=== PATIENT | female | born 1990 | race Caucasian/White ===

== ENCOUNTER 2024-10-14 21:06 | Inpatient (IN) ==
[2024-10-14 21:29] LABS: iSTAT Creatinine 0.9 mg/dl (0.6-1.3); iSTAT Hemoglobin 12.9 g/dl (12.0-16.0); iSTAT Ionized Calcium 1.19 mmol/l (1.12-1.32); iSTAT Potassium 4.8 mmol/L (3.3-5.0)
[2024-10-14 22:04] LABS: Basophils # (auto) 0.05 K/uL (0.00-0.20); Basophils % (auto) 0.8 %; Eosinophils # (auto) 0.43 K/uL (0.00-0.50); Eosinophils % (auto) 6.9 %; Hematocrit (blood only) 37.7 % (37.0-47.0); Hemoglobin 12.4 g/dl (12.0-16.0); Immature Granulocytes # (auto) 0.02 K/uL (0.01-0.20); Immature Granulocytes % (auto) 0.3 %; Lymphocytes # (auto) 1.18 K/uL (1.20-3.40); Mean Corpuscular Hemoglobin 30.5 pg (25.0-34.0); Mean Corpuscular Hgb Conc 32.9 g/dL (32.0-36.0); Mean Corpuscular Volume 92.6 fL (80.0-100.0); Mean Platelet Volume 11.2 fL (9.4-12.4); Monocytes # (auto) 0.48 K/uL (0.11-0.59); Monocytes % (auto) 7.7 %; Neutrophils # (auto) 4.06 K/uL (1.40-6.50); Neutrophils % (auto) 65.3 %; Platelet Count 286 K/uL (130-400); RDW Coefficient of Variation 12.4 % (11.5-14.5); RDW Standard Deviation 42.5 fL (36.4-46.3); Red Blood Count 4.07 M/uL (4.20-5.40); White Blood Count 6.22 K/ul (4.8-10.8)
[2024-10-14 22:06] LABS: BUN Creatinine Ratio 22.4 (10-20); Calcium 9.2 mg/dl (8.6-10.3); Creatinine Clr Calc Pharmacy 120.3 ml/min; Magnesium 2.3 mg/dl (1.7-2.4); Potassium 4.8 mmol/L (3.5-5.1)
[2024-10-14] MEDS: SODIUM CHLORIDE 0.9% 1,000 ML IV ONE (22:07)
--- NOTE | 2024-10-14 22:13 | CT Scan Report ---
Exam(s): CT HEAD Without Contrast EXAM: CT Head Without Intravenous Contrast CLINICAL HISTORY: Reason for exam: ams fall. TECHNIQUE: Axial computed tomography images of the head/brain without intravenous contrast. CTDI is 35 mGy and DLP is 624 mGy-cm. Automated exposure control was utilized for the study. A dose lowering technique was utilized adhering to the principles of ALARA. COMPARISON: No relevant prior studies available. FINDINGS: Brain: No acute intracranial hemorrhage, mass effect, or parenchymal edema. No evident loss of lazcano-white matter differentiation. No significant white matter disease. Ventricles: No hydrocephalus. Bones/joints: No acute fracture. Soft tissues: Unremarkable. Sinuses: Unremarkable as visualized. Mastoid air cells: No significant mastoid effusion. IMPRESSION: No acute intracranial process. Electronically signed by: King Dacosta M.D. 10/14/24 22:12 PM
--- NOTE | 2024-10-14 22:13 | CT Scan Report ---
Exam(s): CT C SPINE EXAM: CT Cervical Spine Without Intravenous Contrast CLINICAL HISTORY: Reason for exam: ams fall. TECHNIQUE: Axial computed tomography images of the cervical spine without intravenous contrast. CTDI is 35 mGy and DLP is 624 mGy-cm. Automated exposure control was utilized for the study. A dose lowering technique was utilized adhering to the principles of ALARA. COMPARISON: No relevant prior studies available. FINDINGS: Vertebrae: Unremarkable. No acute fracture. No traumatic subluxation. Discs/spinal canal/neural foramina: No acute findings. No spinal canal stenosis. Soft tissues: Unremarkable. IMPRESSION: No acute osseous findings. Electronically signed by: King Dacosta M.D. 10/14/24 22:12 PM
[2024-10-14 22:16] LABS: iSTAT Arterial Blood Gas HCO3 25 meg/L (19-24); iSTAT Arterial Blood Gas pCO2 46 mmHg (35-46); iSTAT Arterial Blood Gas pH 7.34 (7.35-7.45); iSTAT Arterial Blood Gas pO2 70 mmHg (80-95); iSTAT Carbon Dioxide 26 mmol/L (24-31); iSTAT Hematocrit 36 % (37-47); iSTAT Hemoglobin 12.2 g/dl (12.0-16.0); iSTAT Potassium 4.2 mmol/L (3.3-5.0); iSTAT Sodium 137 mmol/L (135-144)
--- NOTE | 2024-10-14 22:43 | Emergency Department Note ---
History of Present Illness General Chief complaint: Unresponsive Stated complaint: UNRESPONSIVE Time Seen by Provider: 10/14/24 21:11 Source: family History of Present Illness Provider complaint: Unresponsive 34-year-old female presents emergency department for altered mental status unresponsiveness. History is given by her . reports he came downstairs and found the patient lying on their floor. He reports that he does not think she fell as she commonly lies on the floor and stretches. He states he found her in this position at 8 PM. He states he tried to wake her and she was giving one-word answers and said there is something wrong with her ear. He states he helped her up the stairs which she did walk up with his help. He states when they got up to their bedroom she again passed out and then he called 911. Patient is not on any blood thinners. He reports no drugs or alcohol. He reports no suicidal homicidal ideation. reports that the patient has a history of migraines and is on triptans for it. He also reports that the patient has a history of Lyme's pots disease chronic fatigue and long COVID. He reports that the patient sees an online neurologist and has been prescribing her ketamine for her migraines. reports he is not sure if the patient took the ketamine today and/or how much. Home Medications Medication Instructions Recorded Confirmed Type gabapentin 600 mg tablet 600 mg PO Q12H 10/14/24 10/14/24 History propranolol 20 mg tablet 20 mg PO Q12H 10/14/24 10/14/24 History Past Med/Surg History Problem List (Updated 10/14/24 @ 23:50 by Souleymane Reyes MD) Hypothermia (Acute) Polysubstance overdose (Acute) Medical History Migraine Chronic fatigue Lyme disease Long COVID POTS (postural orthostatic tachycardia syndrome) Social History Smoking Status: Never smoker Physical Exam Vital Signs Vital Signs - 24 hr 10/14/24 20:57 10/14/24 21:11 10/14/24 21:33 Temperature 35.6 C L Temperature Source Rectal Pulse Rate 84 90 Pulse Rate from SpO2 Sensor Respiratory Rate 17 Blood Pressure 140/94 Blood Pressure Mean 109 Pulse Oximetry 98 99 Oxygen Delivery Method Room Air Room Air Sepsis Recent Fever Within 48 Hours No Sepsis New/Unexplained Change in Mental Status No Sepsis Action Taken by Nursing No Action Required End-Tidal CO2 10/14/24 21:51 10/14/24 21:57 10/14/24 22:00 Temperature Temperature Source Pulse Rate 95 H 95 H Pulse Rate from SpO2 Sensor 93 H 93 H Respiratory Rate 19 12 Blood Pressure 138/113 H 146/105 H Blood Pressure Mean 118 118 Pulse Oximetry 98 99 Oxygen Delivery Method Sepsis Recent Fever Within 48 Hours Sepsis New/Unexplained Change in Mental Status Sepsis Action Taken by Nursing End-Tidal CO2 10/14/24 22:15 10/14/24 23:00 Temperature 35.5 C L Temperature Source Pulse Rate 88 80 Pulse Rate from SpO2 Sensor 88 Respiratory Rate 12 12 Blood Pressure 123/75 Blood Pressure Mean 91 Pulse Oximetry 99 99 Oxygen Delivery Method Room Air Sepsis Recent Fever Within 48 Hours Sepsis New/Unexplained Change in Mental Status Sepsis Action Taken by Nursing End-Tidal CO2 42 Physical Exam HENT: Exam performed. -Head: Normocephalic and atraumatic. EYES: Pupils 2 mm and reactive to light. NECK: Normal range of motion. Neck supple. No JVD present. CV: Normal rate, regular rhythm, normal heart sounds and intact distal pulses. There is no peripheral edema. Palpable radial pulses bue. PULM/CHEST: Effort normal and breath sounds normal. No respiratory distress. No stridor. She has no wheezes. She has no rales. ABD: The abdomen is soft. MUSC/SKEL: Pelvis stable. NEURO:GCS eye subscore is 1. GCS verbal subscore is 2. GCS motor subscore is 5. Procedures FAST Exam FAST Exam 1: Fluid in Morison's pouch: No Fluid in Splenorenal Junction: No Fluid around bladder, Transverse view: No Fluid around bladder, Sagittal view: No Fluid in Pericardial Sac: No Gross Wall Motion Abnormality: No Study normal for this patient: Yes Course Course 2110: The patient was evaluated in room A1. A complete history and physical exam was performed Cardiac monitoring: An order was placed for continuous cardiac monitoring. The monitor shows a rate of 90 with sinus rhythm interpreted by me 2235: Heart rate blood pressure and oxygen saturation are within normal limits. Thorpe catheter was placed and the patient's temperature was 35.6. Patient placed on Rosa hugger. Labs show white blood cell count of 6.22. Hemoglobin 12.4. Platelet count 286. Coagulation studies are pending. Blood gas shows a pH of 7.34 with pCO2 of 46. Electrolytes are unremarkable. Kidney function tests are unremarkable. Ammonia magnesium lipase and urine are unremarkable. Salicylate acetaminophen and alcohol level are negative. At this time it is thought that the patient's most likely cause of her altered mental status is a possible accidental overdose of the ketamine that she is prescribed for her migraines by her online neurologist. The family states they are unsure if the patient took the ketamine today and they do not think this was a suicide attempt. I discussed the case with poison control and they agreed that the patient should be admitted for observation. [facility] who states he will evaluate the patient for admission. 2346: Blood pressure and heart rate oxygen saturation stable. Patient's coagulation studies are unremarkable. Patient's urine drug screen tested positive for opiates, fentanyl, MDMA, benzodiazepines, and marijuana. It is possible that in addition to the possibility of ketamine overdose that the patient is suffering from a polysubstance overdose given this drug screen. [facility]. Administered Medications Discontinued Medications Sodium Chloride (Nss) 1,000 mls @ 999 mls/hr IV .[id number] ONE Stop: 10/14/24 22:11 Last Admin: 10/14/24 22:07 Dose: 999 mls/hr Documented By: HOANG Critical Care Time Critical Care Time: Yes Total Critical Care Time: 39 I have personally spent greater than 39 minutes of critical care time in the direct management of this patient. This includes bedside care, interpretation of diagnostic studies, and testing, discussion with consultants, patient, and family members, and other required patient management activities. This 39 minutes is in excess of all separately billable procedures. Medical Decision Making Laboratory Data Attestation: I reviewed the patient's lab results. 10/14/24 21:15 10/14/24 21:15 Lab Results 10/14/24 10/14/24 10/14/24 Range/Units 21:00 21:15 21:17 WBC 6.22 (4.8-10.8) K/ul RBC 4.07 L (4.20-5.40) M/uL Hgb 12.4 (12.0-16.0) g/dl POC Hgb 12.9 (12.0-16.0) g/dl Hct 37.7 (37.0-47.0) % POC Hct 38 (37-47) % MCV 92.6 (80.0-100.0) fL MCH 30.5 (25.0-34.0) pg MCHC 32.9 (32.0-36.0) g/dL RDW Std Deviation 42.5 (36.4-46.3) fL RDW Coeff of Cathy 12.4 (11.5-14.5) % Plt Count 286 (130-400) K/uL MPV 11.2 (9.4-12.4) fL Immature Gran % (Auto) 0.3 % Neut % (Auto) 65.3 % Lymph % (Auto) 19.0 % [place] % (Auto) 7.7 % Eos % (Auto) 6.9 % Baso % (Auto) 0.8 % Neut # (Auto) 4.06 (1.40-6.50) K/uL Lymph # (Auto) 1.18 L (1.20-3.40) K/uL [place] # (Auto) 0.48 (0.11-0.59) K/uL Eos # (Auto) 0.43 (0.00-0.50) K/uL Baso # (Auto) 0.05 (0.00-0.20) K/uL Immature Gran # (Auto) 0.02 (0.01-0.20) K/uL PT 9.6 (9.0-12.0) Seconds INR 0.9 (0.9-1.1) APTT 25 (21-31) Seconds PTT Ratio 0.9 POC pH (7.35-7.45) POC pCO2 (35-46) mmHg POC pO2 (80-95) mmHg POC HCO3 (19-24) rosalie/L POC Base Excess (-9-1.8) rosalie/L POC ABG O2 Sat (90-95) % POC Sodium 137 (135-144) mmol/L Sodium 136 (136-145) mmol/L POC Potassium 4.8 (3.3-5.0) mmol/L Potassium 4.8 (3.5-5.1) mmol/L POC Chloride 103 (101-112) mmol/L Chloride 104 (98-107) mmol/L Carbon Dioxide 27 (21-32) mmol/L POC Total CO2 25 (24-31) mmol/L Anion Gap 5 (3-11) POC Anion Gap 14.0 L (16-25) mmol/L POC BUN 19 H (7-18) mg/dl BUN 19 (6-23) mg/dl Creatinine 0.85 (0.6-1.2) mg/dl POC Creatinine 0.9 (0.6-1.3) mg/dl Est Cr Clr Drug Dosing 120.3 ml/min eGFR 91.57 BUN/Creatinine Ratio 22.4 H (10-20) Glucose 96 (70-99(Fasting)) mg/dl POC Glucose (other) 96 (70-99) mg/dl Calcium 9.2 (8.6-10.3) mg/dl POC Ioniz Calcium Sarah 1.19 (1.12-1.32) mmol/l Magnesium 2.3 (1.7-2.4) mg/dl Ammonia (18-72) umol/L Total Creatine Kinase 54 (26-192) U/L Lipase 17 (11-82) U/L HCG, Quant < 1 mIU/ml Urine Color Urine Appearance (Clear) Urine pH (4.5-7.5) Ur Specific [place] (1.000-1.030) Urine Protein (Negative) Urine Glucose (UA) (Negative) Urine Ketones (Negative) Urine Blood (Negative) Urine Nitrite (Negative) Urine Bilirubin (Negative) Urine Urobilinogen (Negative) Ur Leukocyte Esterase (Negative) Salicylates < 3.0 L (3.0-30) mg/dl Urine Opiates Screen (Neg) Ur Methadone, Qual (Neg) Urine Fentanyl Screen (Neg) Acetaminophen < 3 L (10-30) ug/ml Urine Barbiturates (Neg) Ur Phencyclidine (PCP) (Neg) U Amphetamin/Meth Scrn (Neg) MDMA (Ecstasy) Screen (Neg) U Benzodiazepines Scrn (Neg) Ur Cocaine Metabolite (Neg) U Marijuana (THC) Screen (Neg) Ethyl Alcohol mg/dL < 10.0 (<10.0) mg/dl 10/14/24 10/14/24 Range/Units 21:40 22:03 WBC (4.8-10.8) K/ul RBC (4.20-5.40) M/uL Hgb (12.0-16.0) g/dl POC Hgb 12.2 (12.0-16.0) g/dl Hct (37.0-47.0) % POC Hct 36 L (37-47) % MCV (80.0-100.0) fL MCH (25.0-34.0) pg MCHC (32.0-36.0) g/dL RDW Std Deviation (36.4-46.3) fL RDW Coeff of Cathy (11.5-14.5) % Plt Count (130-400) K/uL MPV (9.4-12.4) fL Immature Gran % (Auto) % Neut % (Auto) % Lymph % (Auto) % [place] % (Auto) % Eos % (Auto) % Baso % (Auto) % Neut # (Auto) (1.40-6.50) K/uL Lymph # (Auto) (1.20-3.40) K/uL [place] # (Auto) (0.11-0.59) K/uL Eos # (Auto) (0.00-0.50) K/uL Baso # (Auto) (0.00-0.20) K/uL Immature Gran # (Auto) (0.01-0.20) K/uL PT (9.0-12.0) Seconds INR (0.9-1.1) APTT (21-31) Seconds PTT Ratio POC pH 7.34 L (7.35-7.45) POC pCO2 46 (35-46) mmHg POC pO2 70 L (80-95) mmHg POC HCO3 25 H (19-24) rosalie/L POC Base Excess -1.0 (-9-1.8) rosalie/L POC ABG O2 Sat 93.0 (90-95) % POC Sodium 137 (135-144) mmol/L Sodium (136-145) mmol/L POC Potassium 4.2 (3.3-5.0) mmol/L Potassium (3.5-5.1) mmol/L POC Chloride (101-112) mmol/L Chloride (98-107) mmol/L Carbon Dioxide (21-32) mmol/L POC Total CO2 26 (24-31) mmol/L Anion Gap (3-11) POC Anion Gap (16-25) mmol/L POC BUN (7-18) mg/dl BUN (6-23) mg/dl Creatinine (0.6-1.2) mg/dl POC Creatinine (0.6-1.3) mg/dl Est Cr Clr Drug Dosing ml/min eGFR BUN/Creatinine Ratio (10-20) Glucose (70-99(Fasting)) mg/dl POC Glucose (other) (70-99) mg/dl Calcium (8.6-10.3) mg/dl POC Ioniz Calcium Sarah (1.12-1.32) mmol/l Magnesium (1.7-2.4) mg/dl Ammonia 15.0 L (18-72) umol/L Total Creatine Kinase (26-192) U/L Lipase (11-82) U/L HCG, Quant mIU/ml Urine Color Yellow Urine Appearance Clear (Clear) Urine pH 6.0 (4.5-7.5) Ur Specific [place] 1.015 (1.000-1.030) Urine Protein Negative (Negative) Urine Glucose (UA) Negative (Negative) Urine Ketones Negative (Negative) Urine Blood Negative (Negative) Urine Nitrite Negative (Negative) Urine Bilirubin Negative (Negative) Urine Urobilinogen Negative (Negative) Ur Leukocyte Esterase Negative (Negative) Salicylates (3.0-30) mg/dl Urine Opiates Screen Pos H (Neg) Ur Methadone, Qual Neg (Neg) Urine Fentanyl Screen Pos H (Neg) Acetaminophen (10-30) ug/ml Urine Barbiturates Neg (Neg) Ur Phencyclidine (PCP) Neg (Neg) U Amphetamin/Meth Scrn Neg (Neg) MDMA (Ecstasy) Screen Pos H (Neg) U Benzodiazepines Scrn Pos H (Neg) Ur Cocaine Metabolite Neg (Neg) U Marijuana (THC) Screen Pos H (Neg) Ethyl Alcohol mg/dL (<10.0) mg/dl Imaging Data Attestation: I personally reviewed and interpreted this imaging study as follows: My Impression: CT head: No ICH Chest x-ray: Chest x-ray negative. Airway clear. No pneumothorax. No consolidation. No cardiomegaly or cephalization.. No free air under the diaphragm. No fractures of the skeletal structures. Radiologist's Impression: Head CT 10/14/24 21:11 Exam(s): CT HEAD Without Contrast EXAM: CT Head Without Intravenous Contrast CLINICAL HISTORY: Reason for exam: ams fall. TECHNIQUE: Axial computed tomography images of the head/brain without intravenous contrast. CTDI is 35 mGy and DLP is 624 mGy-cm. Automated exposure control was utilized for the study. A dose lowering technique was utilized adhering to the principles of ALARA. COMPARISON: No relevant prior studies available. FINDINGS: Brain: No acute intracranial hemorrhage, mass effect, or parenchymal edema. No evident loss of lazcano-white matter differentiation. No significant white matter disease. Ventricles: No hydrocephalus. Bones/joints: No acute fracture. Soft tissues: Unremarkable. Sinuses: Unremarkable as visualized. Mastoid air cells: No significant mastoid effusion. IMPRESSION: No acute intracranial process. Electronically signed by: King Dacosta M.D. 10/14/24 22:[address] 10/14/24 21:12 Exam(s): CT C SPINE EXAM: CT Cervical Spine Without Intravenous Contrast CLINICAL HISTORY: Reason for exam: ams fall. TECHNIQUE: Axial computed tomography images of the cervical spine without intravenous contrast. CTDI is 35 mGy and DLP is 624 mGy-cm. Automated exposure control was utilized for the study. A dose lowering technique was utilized adhering to the principles of ALARA. COMPARISON: No relevant prior studies available. FINDINGS: Vertebrae: Unremarkable. No acute fracture. No traumatic subluxation. Discs/spinal canal/neural foramina: No acute findings. No spinal canal stenosis. Soft tissues: Unremarkable. IMPRESSION: No acute osseous findings. Electronically signed by: King Dacosta M.D. 10/14/24 22:12 PM Chest X-Ray 10/14/24 21:12 Exam(s): XR CXR 1 VIEW EXAM: XR Chest, 1 View CLINICAL HISTORY: Reason for exam: ams fall. TECHNIQUE: Frontal view of the chest. COMPARISON: No relevant prior studies available. FINDINGS: Lungs: No consolidation. Pleural space: No pleural effusion or pneumothorax. Heart: No cardiomegaly or pulmonary vascular congestion. Bones/joints: No acute fracture. No dislocation. IMPRESSION: No evidence of acute cardiopulmonary disease. Electronically signed by: King Dacosta M.D. 10/14/24 22:40 PM Pelvis X-Ray 10/14/24 21:12 Exam(s): XR PELVIS, 1-2 views EXAM: XR Pelvis, 1 or 2 Views CLINICAL HISTORY: Reason for exam: ams fall. TECHNIQUE: Frontal view of the pelvis. COMPARISON: No relevant prior studies available. FINDINGS: Bones/joints: No acute fracture. No dislocation. Soft tissues: Unremarkable. IMPRESSION: No acute osseous findings. Electronically signed by: King Dacosta M.D. 10/14/24 22:40 PM Exam(s): XR CXR 1 VIEW EXAM: XR Chest, 1 View CLINICAL HISTORY: Reason for exam: ams fall. TECHNIQUE: Frontal view of the chest. COMPARISON: No relevant prior studies available. FINDINGS: Lungs: No consolidation. Pleural space: No pleural effusion or pneumothorax. Heart: No cardiomegaly or pulmonary vascular congestion. Bones/joints: No acute fracture. No dislocation. IMPRESSION: No evidence of acute cardiopulmonary disease. Electronically signed by: King Dacosta M.D. 10/14/24 22:40 PM Dictated: 10/14/242239 Transcribed: 10/14/242239 Exam(s): XR PELVIS, 1-2 views EXAM: XR Pelvis, 1 or 2 Views CLINICAL HISTORY: Reason for exam: ams fall. TECHNIQUE: Frontal view of the pelvis. COMPARISON: No relevant prior studies available. FINDINGS: Bones/joints: No acute fracture. No dislocation. Soft tissues: Unremarkable. IMPRESSION: No acute osseous findings. Electronically signed by: King Dacosta M.D. 10/14/24 22:40 PM Dictated: 10/14/242239 Transcribed: 10/14/242239 ECG Data Attestation: I personally reviewed and interpreted this ECG as follows: Rate (beats per minute): 93 Rhythm: + normal sinus ECG Intervals/blocks: + Normal QRS, + Normal NH and + Normal QT-c ECG ST segments: + Normal ST segments [facility] Narrative 2111: The patient was evaluated in room A1. A complete history and physical exam was performed Cardiac monitoring: An order was placed for continuous cardiac monitoring. The monitor shows a rate of 90 with sinus rhythm interpreted by nm 2235: Heart rate blood pressure and oxygen saturation are within normal limits. Thorpe catheter was placed and the patient's temperature was 35.6. Patient placed on Rosa hugger. Labs show white blood cell count of 6.22. Hemoglobin 12.4. Platelet count 286. Coagulation studies are pending. Blood gas shows a pH of 7.34 with pCO2 of 46. Electrolytes are unremarkable. Kidney function tests are unremarkable. Ammonia magnesium lipase and urine are unremarkable. Salicylate acetaminophen and alcohol level are negative. At this time it is thought that the patient's most likely cause of her altered mental status is a possible accidental overdose of the ketamine that she is prescribed for her migraines by her online neurologist. The family states they are unsure if the patient took the ketamine today and they do not think this was a suicide attempt. I discussed the case with poison control and they agreed that the patient should be admitted for observation. Discussed case with admitting team [facility] hospitalist Dr. Yates who states he will evaluate the patient for admission. 2346: Blood pressure and heart rate oxygen saturation stable. Patient's coagulation studies are unremarkable. Patient's urine drug screen tested positive for opiates, fentanyl, MDMA, benzodiazepines, and marijuana. It is possible that in addition to the possibility of ketamine overdose that the patient is suffering from a polysubstance overdose given this drug screen. [facility] Impression & Plan Polysubstance overdose, Hypothermia Discharge Plan Visit Data Chief Complaint: Unresponsive Stated Complaint: UNRESPONSIVE ED Provider: Souleymane Reyes Discharge Problem: Polysubstance overdose, Hypothermia Patient Disposition: Being Evaluated by Hospitalist Forms Stand Alone Forms: My [facility] Prescriptions Prescriptions: No Action gabapentin 600 mg tablet 600 mg PO Q12H propranolol 20 mg tablet 20 mg PO Q12H Referrals Referrals: Ansley Gay MD [Primary Care Provider] -
[2024-10-14 22:53] LABS: Amphetamines+Metham, Urine Neg (Neg); Barbiturates, Urine Neg (Neg); Benzodiazepine, Urine Pos (Neg); Cocaine, Urine Neg (Neg); Fentanyl, Urine Pos (Neg); MDMA (Ecstacy), Urine Pos (Neg); Marijuana, Urine Pos (Neg); Methadone, Urine Neg (Neg); Opiate, Urine Pos (Neg); Phencyclidine, Urine Neg (Neg)
[2024-10-14 23:01] LABS: Appearance Urine Clear (Clear); Bilirubin Urine Negative (Negative); Blood Urine Negative (Negative); Color Urine Yellow; Glucose Urine UA Negative (Negative); Ketones Urine Negative (Negative); Leukocyte Esterase Urine Negative (Negative); Nitrite Urine Negative (Negative); Protein Urine Negative (Negative); Specific Gravity Urine 1.015 (1.000-1.030); Urobilinogen Urine Negative (Negative)
[2024-10-14 23:17] LABS: INR 0.9 (0.9-1.1); Partial Thromboplastin Ratio 0.9; Partial Thromboplastin Time 25 Seconds (21-31); Prothrombin Time 9.6 Seconds (9.0-12.0)
--- NOTE | 2024-10-15 01:23 | History & Physical Report ---
Date of Service October 15, 2024 Assessment & Plan (1) Unresponsive: Plan: 34-year-old female with past med history significant for migraines comes because of unresponsiveness. says patient went to her parents home at 6 PM and came back home around 7 PM. was upstairs. Generally patient comes upstairs in few minutes. As she did not come upstairs went to check on her around 8 PM and he found her on the floor. He does not know how long she was there. He did try to wake her up she could open her eyes. He helped her get up. She told her that there is something wrong with her ear. With husbands help she was able to climb up stairs. She wanted to go to bathroom but was weak and she seemed to pass out again and slowly lowered her to the ground. At this time He could not wake her up and called EMS and brought in here. Currently patient opens eyes on calling. Moves her extremities slightly on calling. But does not answer any questions. Patient is hypothermic. Blood pressure is okay. Eaadf-gr-qmdk pH is 7.34. Pxlna-pt-luhr pCO2 46. Labs are okay. Urinalysis negative. Urine drug screen came positive for opiates. Fentanyl. MDMA screen. Benzodiazepines. Marijuana screen. Alcohol less than 10. CT head is okay. CT cervical spine okay. Pelvic x-ray okay. Chest x-ray okay. As per patient apparently was okay until this happened. In the morning she complained of the some pain in her in the right leg. And also complained of about moving her bowels. But no recent fevers. No recent cough. No complaints of chest pain or belly pain. Patient has chronic headaches, neck and jaw pain per As per patient follows with tele[facility] neurology. As per she was prescribed ketamine for migraines and does not know whether she took it recently. also thinks patient might be taking opiates but not sure about it. Patient never had this episodes in the past as per the .As per patient was diagnosed with Lyme, POTS, chronic fatigue and long COVID since about a year. Unresponsiveness Hypothermia Most likely from polydrug overdose Rosa oneill Fluids Drug screen positive for opiates, fentanyl, MDMA, benzodiazepines, marijuana Patient also seems to be taking ketamine for migraines Empiric Zosyn and fluids Follow repeat labs, cultures, will follow TSH Seizure precautions ER discussed about ketamine with poison control and was recommended observation EEG Echo Telemetry Neuroconsult a.m. for further recommendations Close monitor History of migraines Hold home medications for now History of Lyme's, POTS, chronic fatigue, and long COVID DVT prophylaxis SCDs for now Disposition Telemetry Full code. Addendum: Patient in am woke up and alert and oriented. refused echo and eeg and wanted to go home. Talked with patient . Patient says her friend gave her stuff which has marijuana and mixed with other substances which she dont know. She thinks thats what caused last night episode. She refused any further workup and wants to go home. Patient is alert and oriented x3. Able to ambulated ok in the room.Advised to stay for further monitoring but patient declined and signed out MA. Notified about AMA and advised to bring back if anything changes. History of Present Illness Chief Complaint: Unresponsive episode Primary Care Provider: Ansley Gay MD 34-year-old female with past med history significant for migraines comes because of unresponsiveness. says patient went to her parents home at 6 PM and came back home around 7 PM. was upstairs. Generally patient comes upstairs in few minutes. As she did not come upstairs went to check on her around 8 PM and he found her on the floor. He does not know how long she was there. He did try to wake her up she could open her eyes. He helped her get up. She told her that there is something wrong with her ear. With husbands help she was able to climb up stairs. She wanted to go to bathroom but was weak and she seemed to pass out again and slowly lowered her to the ground. At this time He could not wake her up and called EMS and brought in here. Currently patient opens eyes on calling. Moves her extremities slightly on calling. But does not answer any questions. Patient is hypothermic. Blood pressure is okay. Gwcoo-rg-blhg pH is 7.34. Llirl-wn-adjl pCO2 46. Labs are okay. Urinalysis negative. Urine drug screen came positive for opiates. Fentanyl. MDMA screen. Benzodiazepines. Marijuana screen. Alcohol less than 10. CT head is okay. CT cervical spine okay. Pelvic x-ray okay. Chest x-ray okay. As per patient apparently was okay until this happened. In the morning she complained of the some pain in her in the right leg. And also complained of about moving her bowels. But no recent fevers. No recent cough. No complaints of chest pain or belly pain. Patient has chronic headaches, neck and jaw pain per As per patient follows with telehealth neurology. As per she was prescribed ketamine for migraines and does not know whether she took it recently. also thinks patient might be taking opiates but not sure about it. Patient never had this episodes in the past as per the .As per patient was diagnosed with Lyme, POTS, chronic fatigue and long COVID since about a year. Past medical history. As mentioned above Past surgical history. None as per . Social history. No smoking as per alcohol rarely expressed. No use of drugs as per the Family history. Father had blockages in neck. Mother has prediabetes Allergies Allergy/AdvReac Type Severity Reaction Status Date / Time No Known Allergies Allergy Unverified 10/15/24 03:39 Home Medications Medication Instructions Recorded Confirmed Type gabapentin 600 mg tablet 600 mg PO Q12H 10/14/24 10/14/24 History propranolol 20 mg tablet 20 mg PO Q12H 10/14/24 10/14/24 History Past Med/Surg History Problem List (Updated 10/15/24 @ 01:31 by Lenny Yates MD) Unresponsive Hypothermia (Acute) Polysubstance overdose (Acute) Medical History Migraine Chronic fatigue Lyme disease Long COVID POTS (postural orthostatic tachycardia syndrome) Social History Smoking Status: Never smoker Hx Alcohol Use: No Hx Substance Use: Yes Last Used Substance: Hours (ago) Substance Use Type Other:: cannabis edibles Preferred Language: Yakut Communication Ability: Effective Mechanical Reliability Engineer Required: No Beliefs That Will Affect Care: None Current Living Situation: Spouse Feels Safe at Home: Yes Safety Concerns: Feels Safe At This Time Assistive Devices: Glasses Review of Systems Review of Systems: Unobtainable due to reduced consciousness Physical Exam Physical Exam: General- Drowsy Head- atraumatic Eyes- PERRL. ENT- oropharynx clear Neck- no JVD. Lungs- clear to auscultation no wheezing or crackles Heart- regular rhythm; no murmur, no gallop. Abdomen- sluggish bowel sounds, soft, no distension Extremities- no pretibial edema, no erythema seen Neuro- Drowsy, open eyes on calling, slight movements of extremities on command Results & Data Results & Data Vital Signs (Past 12 Hours) Vital Signs Temp Pulse Pulse Resp BP Pulse Ox O2 Del Method 10/15/24 00:30 35.7 C L 84 100 Room Air 10/15/24 00:05 35.5 C L 10/15/24 00:00 80 130/81 99 10/14/24 23:00 35.5 C L 80 12 123/75 99 Room Air 10/14/24 22:15 88 12 99 10/14/24 22:00 95 H 12 146/105 H 99 10/14/24 21:57 138/113 H 10/14/24 21:51 95 H 19 98 10/14/24 21:33 90 10/14/24 21:11 99 Room Air 10/14/24 20:57 35.6 C L 84 17 140/94 98 Room Air Diagnostic Findings Laboratory Results WBC 6.22 K/ul (4.8-10.8) 10/14/24 21:15 RBC 4.07 M/uL (4.20-5.40) L 10/14/24 21:15 Hgb 12.4 g/dl (12.0-16.0) 10/14/24 21:15 POC Hgb 12.2 g/dl (12.0-16.0) 10/14/24 22:03 Hct 37.7 % (37.0-47.0) 10/14/24 21:15 POC Hct 36 % (37-47) L 10/14/24 22:03 MCV 92.6 fL (80.0-100.0) 10/14/24 21:15 MCH 30.5 pg (25.0-34.0) 10/14/24 21:15 MCHC 32.9 g/dL (32.0-36.0) 10/14/24 21:15 RDW Std Deviation 42.5 fL (36.4-46.3) 10/14/24 21:15 RDW Coeff of Cathy 12.4 % (11.5-14.5) 10/14/24 21:15 Plt Count 286 K/uL (130-400) 10/14/24 21:15 MPV 11.2 fL (9.4-12.4) 10/14/24 21:15 Immature Gran % (Auto) 0.3 % 10/14/24 21:15 Neut % (Auto) 65.3 % 10/14/24 21:15 Lymph % (Auto) 19.0 % 10/14/24 21:15 [place] % (Auto) 7.7 % 10/14/24 21:15 Eos % (Auto) 6.9 % 10/14/24 21:15 Baso % (Auto) 0.8 % 10/14/24 21:15 Neut # (Auto) 4.06 K/uL (1.40-6.50) 10/14/24 21:15 Lymph # (Auto) 1.18 K/uL (1.20-3.40) L 10/14/24 21:15 [place] # (Auto) 0.48 K/uL (0.11-0.59) 10/14/24 21:15 Eos # (Auto) 0.43 K/uL (0.00-0.50) 10/14/24 21:15 Baso # (Auto) 0.05 K/uL (0.00-0.20) 10/14/24 21:15 Immature Gran # (Auto) 0.02 K/uL (0.01-0.20) 10/14/24 21:15 PT 9.6 Seconds (9.0-12.0) 10/14/24 21:15 INR 0.9 (0.9-1.1) 10/14/24 21:15 APTT 25 Seconds (21-31) 10/14/24 21:15 PTT Ratio 0.9 10/14/24 21:15 POC pH 7.34 (7.35-7.45) L 10/14/24 22:03 POC pCO2 46 mmHg (35-46) 10/14/24 22:03 POC pO2 70 mmHg (80-95) L 10/14/24 22:03 POC HCO3 25 rosalie/L (19-24) H 10/14/24 22:03 POC Total CO2 26 mmol/L (24-31) 10/14/24 22:03 POC Base Excess -1.0 rosalie/L (-9-1.8) 10/14/24 22:03 POC ABG O2 Sat 93.0 % (90-95) 10/14/24 22:03 POC Sodium 137 mmol/L (135-144) 10/14/24 22:03 Sodium 136 mmol/L (136-145) 10/14/24 21:15 POC Potassium 4.2 mmol/L (3.3-5.0) 10/14/24 22:03 Potassium 4.8 mmol/L (3.5-5.1) 10/14/24 21:15 POC Chloride 103 mmol/L (101-112) 10/14/24 21:17 Chloride 104 mmol/L (98-107) 10/14/24 21:15 Carbon Dioxide 27 mmol/L (21-32) 10/14/24 21:15 POC Total CO2 25 mmol/L (24-31) 10/14/24 21:17 Anion Gap 5 (3-11) 10/14/24 21:15 POC Anion Gap 14.0 mmol/L (16-25) L 10/14/24 21:17 POC BUN 19 mg/dl (7-18) H 10/14/24 21:17 BUN 19 mg/dl (6-23) 10/14/24 21:15 Creatinine 0.85 mg/dl (0.6-1.2) 10/14/24 21:15 POC Creatinine 0.9 mg/dl (0.6-1.3) 10/14/24 21:17 Est Cr Clr Drug Dosing 120.3 ml/min 10/14/24 21:15 eGFR 91.57 10/14/24 21:15 BUN/Creatinine Ratio 22.4 (10-20) H 10/14/24 21:15 Glucose 96 mg/dl (70-99(Fasting)) 10/14/24 21:15 POC Glucose (other) 96 mg/dl (70-99) 10/14/24 21:17 Calcium 9.2 mg/dl (8.6-10.3) 10/14/24 21:15 POC Ioniz Calcium Sarah 1.19 mmol/l (1.12-1.32) 10/14/24 21:17 Magnesium 2.3 mg/dl (1.7-2.4) 10/14/24 21:15 Ammonia 15.0 umol/L (18-72) L 10/14/24 21:40 Total Creatine Kinase 54 U/L (26-192) 10/14/24 21:15 Lipase 17 U/L (11-82) 10/14/24 21:15 HCG, Quant < 1 mIU/ml 10/14/24 21:15 Urine Color Yellow 10/14/24 22:03 Urine Appearance Clear (Clear) 10/14/24 22:03 Urine pH 6.0 (4.5-7.5) 10/14/24 22:03 Ur Specific [place] 1.015 (1.000-1.030) 10/14/24 22:03 Urine Protein Negative (Negative) 10/14/24 22:03 Urine Glucose (UA) Negative (Negative) 10/14/24 22:03 Urine Ketones Negative (Negative) 10/14/24 22:03 Urine Blood Negative (Negative) 10/14/24 22:03 Urine Nitrite Negative (Negative) 10/14/24 22:03 Urine Bilirubin Negative (Negative) 10/14/24 22:03 Urine Urobilinogen Negative (Negative) 10/14/24 22:03 Ur Leukocyte Esterase Negative (Negative) 10/14/24 22:03 Salicylates < 3.0 mg/dl (3.0-30) L 10/14/24 21:00 Urine Opiates Screen Pos (Neg) H 10/14/24 22:03 Ur Methadone, Qual Neg (Neg) 10/14/24 22:03 Urine Fentanyl Screen Pos (Neg) H 10/14/24 22:03 Acetaminophen < 3 ug/ml (10-30) L 10/14/24 21:15 Urine Barbiturates Neg (Neg) 10/14/24 22:03 Ur Phencyclidine (PCP) Neg (Neg) 10/14/24 22:03 U Amphetamin/Meth Scrn Neg (Neg) 10/14/24 22:03 MDMA (Ecstasy) Screen Pos (Neg) H 10/14/24 22:03 U Benzodiazepines Scrn Pos (Neg) H 10/14/24 22:03 Ur Cocaine Metabolite Neg (Neg) 10/14/24 22:03 U Marijuana (THC) Screen Pos (Neg) H 10/14/24 22:03 Ethyl Alcohol mg/dL < 10.0 mg/dl (<10.0) 10/14/24 21:[address] 10/14/24 21:11 Exam(s): CT HEAD Without Contrast EXAM: CT Head Without Intravenous Contrast CLINICAL HISTORY: Reason for exam: ams fall. TECHNIQUE: Axial computed tomography images of the head/brain without intravenous contrast. CTDI is 35 mGy and DLP is 624 mGy-cm. Automated exposure control was utilized for the study. A dose lowering technique was utilized adhering to the principles of ALARA. COMPARISON: No relevant prior studies available. FINDINGS: Brain: No acute intracranial hemorrhage, mass effect, or parenchymal edema. No evident loss of lazcano-white matter differentiation. No significant white matter disease. Ventricles: No hydrocephalus. Bones/joints: No acute fracture. Soft tissues: Unremarkable. Sinuses: Unremarkable as visualized. Mastoid air cells: No significant mastoid effusion. IMPRESSION: No acute intracranial process. Electronically signed by: King Dacosta M.D. 10/14/24 22:[address] 10/14/24 21:12 Exam(s): CT C SPINE EXAM: CT Cervical Spine Without Intravenous Contrast CLINICAL HISTORY: Reason for exam: ams fall. TECHNIQUE: Axial computed tomography images of the cervical spine without intravenous contrast. CTDI is 35 mGy and DLP is 624 mGy-cm. Automated exposure control was utilized for the study. A dose lowering technique was utilized adhering to the principles of ALARA. COMPARISON: No relevant prior studies available. FINDINGS: Vertebrae: Unremarkable. No acute fracture. No traumatic subluxation. Discs/spinal canal/neural foramina: No acute findings. No spinal canal stenosis. Soft tissues: Unremarkable. IMPRESSION: No acute osseous findings. Electronically signed by: King Dacosta M.D. 10/14/24 22:12 PM Chest X-Ray 10/14/24 21:12 Exam(s): XR CXR 1 VIEW EXAM: XR Chest, 1 View CLINICAL HISTORY: Reason for exam: ams fall. TECHNIQUE: Frontal view of the chest. COMPARISON: No relevant prior studies available. FINDINGS: Lungs: No consolidation. Pleural space: No pleural effusion or pneumothorax. Heart: No cardiomegaly or pulmonary vascular congestion. Bones/joints: No acute fracture. No dislocation. IMPRESSION: No evidence of acute cardiopulmonary disease. Electronically signed by: King Dacosta M.D. 10/14/24 22:40 PM Pelvis X-Ray 10/14/24 21:12 Exam(s): XR PELVIS, 1-2 views EXAM: XR Pelvis, 1 or 2 Views CLINICAL HISTORY: Reason for exam: ams fall. TECHNIQUE: Frontal view of the pelvis. COMPARISON: No relevant prior studies available. FINDINGS: Bones/joints: No acute fracture. No dislocation. Soft tissues: Unremarkable. IMPRESSION: No acute osseous findings. Electronically signed by: King Dacosta M.D. 10/14/24 22:40 PM Code Status & VTE Plan VTE Prophylaxis Plan VTE Prophylaxis will be ordered: Yes
[2024-10-15] MEDS ORDERED: NITROGLYCERIN SL 0.4 MG/TAB TAB SL PRN (02:29)
[2024-10-15] MEDS: SODIUM CHLORIDE 0.9% 1,000 ML IV SCH (02:56)
[2024-10-15 03:57] LABS: Basophils # (auto) 0.04 K/uL (0.00-0.20); Basophils % (auto) 0.5 %; Eosinophils # (auto) 0.36 K/uL (0.00-0.50); Eosinophils % (auto) 4.4 %; Hemoglobin 11.9 g/dl (12.0-16.0); Immature Granulocytes # (auto) 0.02 K/uL (0.01-0.20); Immature Granulocytes % (auto) 0.2 %; Lymphocytes # (auto) 0.98 K/uL (1.20-3.40); Lymphocytes % (auto) 12.1 %; Mean Corpuscular Hemoglobin 31.6 pg (25.0-34.0); Mean Corpuscular Volume 93.1 fL (80.0-100.0); Monocytes # (auto) 0.59 K/uL (0.11-0.59); Monocytes % (auto) 7.3 %; Neutrophils # (auto) 6.14 K/uL (1.40-6.50); Neutrophils % (auto) 75.5 %; Platelet Count 268 K/uL (130-400); RDW Coefficient of Variation 12.3 % (11.5-14.5); RDW Standard Deviation 42.5 fL (36.4-46.3); Red Blood Count 3.76 M/uL (4.20-5.40); White Blood Count 8.13 K/ul (4.8-10.8)
[2024-10-15] MEDS: Patient's ALLERGY Info needs ENTERED STA (03:58)
[2024-10-15 04:07] LABS: BUN Creatinine Ratio 21.1 (10-20); Calcium 8.5 mg/dl (8.6-10.3); Creatinine Clr Calc Pharmacy 138.3 ml/min; Potassium 3.9 mmol/L (3.5-5.1)
[2024-10-15 04:13] LABS: Troponin I High Sensitivity 5.4 pg/ml (0-14)
[2024-10-15] MEDS: 4.5GM X1 IV STA (04:16)
[2024-10-15 04:23] LABS: Thyroid Stimulating Hormone 1.323 uIu/ml (0.300-4.500)
[2024-10-15] MEDS ORDERED: PIPERACILLIN/TAZOBACTAM 4.5 GM/100 ML BAG IV SCH (09:00)
--- NOTE | 2024-10-15 09:34 | Discharge Summary ---
Date of Service October 15, 2024 Admission HPI Per Admitting Provider 34-year-old female with past med history significant for migraines comes because of unresponsiveness. says patient went to her parents home at 6 PM and came back home around 7 PM. was upstairs. Generally patient comes upstairs in few minutes. As she did not come upstairs went to check on her around 8 PM and he found her on the floor. He does not know how long she was there. He did try to wake her up she could open her eyes. He helped her get up. She told her that there is something wrong with her ear. With husbands help she was able to climb up stairs. She wanted to go to bathroom but was weak and she seemed to pass out again and slowly lowered her to the ground. At this time He could not wake her up and called EMS and brought in here. Currently patient opens eyes on calling. Moves her extremities slightly on calling. But does not answer any questions. Patient is hypothermic. Blood pressure is okay. Vpwpt-by-bajm pH is 7.34. Lssnq-ow-brsm pCO2 46. Labs are okay. Urinalysis negative. Urine drug screen came positive for opiates. Fentanyl. MDMA screen. Benzodiazepines. Marijuana screen. Alcohol less than 10. CT head is okay. CT cervical spine okay. Pelvic x-ray okay. Chest x-ray okay. As per patient apparently was okay until this happened. In the morning she complained of the some pain in her in the right leg. And also complained of about moving her bowels. But no recent fevers. No recent cough. No complaints of chest pain or belly pain. Patient has chronic headaches, neck and jaw pain per As per patient [facility]. As per she was prescribed ketamine for migraines and does not know whether she took it recently. also thinks patient might b e taking opiates but not sure about it. Patient never had this episodes in the past as per the .As per patient was diagnosed with Lyme, POTS, chronic fatigue and long COVID since about a year. Past medical history. As mentioned above Past surgical history. None as per . Social history. No smoking as per alcohol rarely expressed. No use of drugs as per the Family history. Father had blockages in neck. Mother has prediabetes Principal Diagnosis unresponsive episode Discharge Data Allergies Allergy/AdvReac Type Severity Reaction Status Date / Time No Known Allergies Allergy Unverified 10/15/24 03:39 Consultations 10/14/24 22:26 ED Decision to Admit Stat Ordered Studies 10/14/24 21:11 CT head/brain wo con Stat 10/14/24 21:12 CT cervical spine wo con Stat Total Time Total Time Spent Total Time Spent (In Minutes): 35 minutes Discharge Plan Discharge Items Patient Disposition: Against Medical Advice Reason For Visit: UNRESPONSIVE Activity: As commented below Activity Comment: Per PCP Non-emergency contact: Primary Care Provider Follow-up/Referrals: Ansley Gay MD [Primary Care Provider] - Pending Studies at Discharge: No Stand-Alone Forms: mBlox, Smoking Cessation Medications and DC Order Prescriptions: Continued gabapentin 600 mg tablet 600 mg PO Q12H propranolol 20 mg tablet 20 mg PO Q12H Discharge Orders: Left Against Medical Advice (Routine); Ordered 10/15/24 Ordered By: Lenny Yates Admission Data Admit Date/Time: 10/15/24 00:56 Attending Provider: James Mittal Admit Provider: Lenny Yates Primary Care Provider: Ansley Gay Other Providers: Lenny Yates
--- NOTE | 2024-10-15 21:02 | Electrocardiogram Report ---
Test Reason : Blood Pressure : */* mmHG Vent. Rate : 93 BPM Atrial Rate : 93 BPM P-R Int : 142 ms QRS Dur : 76 ms QT Int : 376 ms P-R-T Axes : 61 74 54 degrees QTcB Int : 467 ms Normal sinus rhythm Possible Left atrial enlargement Borderline ECG No previous ECGs available Confirmed by Aidan Christian ([id number]) on 10/15/2024 9:02:14 PM Referred By: REFERRED SELF Confirmed By: Aidan Christian
[2024-10-19 08:33] LABS: 7-Aminoclonaz, Confirm 414 ng/mL (<25); Codeine Urine NEGATIVE ng/mL (<50); Fentanyl, Urine 4.3 ng/mL (<0.5); Hydro-Alp Ur, GC/MS 213 ng/mL (<25); Hydrocodone Urine NEGATIVE ng/mL (<50); Hydromor Urine NEGATIVE ng/mL (<50); Hydroxyethylflurazepam, Conf NEGATIVE ng/mL (<50); Hydroxymidazolam Ur, GC/MS NEGATIVE ng/mL (<50); Hydroxytriazolam NEGATIVE ng/mL (<50); Lorazepam, Ur GC/MS NEGATIVE ng/mL (<50); MDA negative; MDEA negative; MDMA (Ecstasy) Urine, Confirm negative; Marijuana Quant, GCMS Urine 3399 ng/mL (<5); Morphine Urine 101 ng/mL (<50); Nordiazepam, Confirm 492 ng/mL (<50); Norfentanyl, Urine 23.3 ng/mL (<0.5); Norhydrocodone Conf Ur NEGATIVE ng/mL (<50); Noroxycodone Urine 338 ng/mL (<50); Oxazepam Ur, GC/MS 1030 ng/mL (<50); Oxycodone Urine NEGATIVE ng/mL (<50); Oxymorph Urine 74 ng/mL (<50); Temazepam, Confirm 910 ng/mL (<50); medMATCH Fentanyl, Urine DNR; medMATCH Norfentanyl, Urine DNR
== END 2024-10-15 08:52 | disposition left against medical advice (07) | DRG 918 ==
LOC: ED 21:06 → 2S 10-15 00:56